=== PATIENT | female | born 1965 ===

== ENCOUNTER 2018-05-10 11:00 | Day surgery (SDC) | payer OTHER ==
[2018-05-10] MEDS ORDERED: Lactated Ringer's 500 ML IV ONE (11:44)
[2018-05-10] MEDS ORDERED: Propofol 10 mg/ml Inj (20 ML) ONE (14:24)
[2018-05-10 14:37] VITALS: O2SAT 100
[2018-05-10 14:53] VITALS: TEMP 97.6
[2018-05-10 15:03] VITALS: BP 111/74; PULSE 69; RESP 15
== END 2018-05-10 15:46 | disposition home or self-care (01) ==
LOC: H.ENDO 11:00
PROVIDERS: ATTEND Internal Medicine Gastroenterology
DX: R10.13 Epigastric pain (principal); E03.9 Hypothyroidism, unspecified; E78.5 Hyperlipidemia, unspecified; M79.1 Myalgia; K31.7 Polyp of stomach and duodenum; K31.89 Other diseases of stomach and duodenum; K29.50 Unspecified chronic gastritis without bleeding
CPT/HCPCS: 43239; 88305; J2001; J2704; J7120